=== PATIENT | male | born 1990 | race African-American/Black ===

== ENCOUNTER 2018-11-03 11:14 | Emergency (ER) | payer OTHER ==
[~2018-11-03] VITALS: Ht 182.9 cm; Wt 99.8 kg
[2018-11-03] MEDS ORDERED: NAPROSYN500 MG PO ×2 (11:25→13:24)
[2018-11-03] MEDS ORDERED: NORCO 5-325 TA1 EACH PO (13:24)
[2018-11-03 13:46] VITALS: BP 132/74
== END 2018-11-03 13:45 | disposition home or self-care (01) ==
LOC: ER 11:14
DX: L02.31 Cutaneous abscess of buttock (principal)

== ENCOUNTER 2018-12-10 02:29 | Emergency (ER) | payer OTHER ==
[~2018-12-10] VITALS: Ht 185.4 cm; Wt 90.7 kg
[~2018-12-10 02:29] MED LIST: NAPROSYN500 MG PO; NORCO 5-325 TA1 EACH PO
[2018-12-10 03:36] VITALS: BP 134/75
== END 2018-12-10 04:17 | disposition home or self-care (01) ==
LOC: ER 02:29
DX: S01.21XA Laceration without foreign body of nose, initial encounter (principal); S01.511A Laceration without foreign body of lip, initial encounter; W22.8XXA Striking against or struck by other objects, initial encounter; Y93.89 Activity, other specified; Y92.89 Other specified places as the place of occurrence of the external cause; Y99.8 Other external cause status